=== PATIENT | male | born 1965 | race Caucasian/White ===

== ENCOUNTER 2019-11-18 10:38 | Outpatient (CLI) | payer OTHER, SELFPAY ==
--- NOTE | ~2019-11-18 | US_ITS ---
EXAMINATION: US joint non vasc ltd RT DATE: 11/18/2019 11:15 INDICATION: Right knee pain and palpable lump TECHNIQUE: Multiple grayscale and Doppler ultrasound images of the region of concern at the lateral r ight knee/proximal calf were obtained. COMPARISON: None FINDINGS: At the region of concern is a 3.0 x 3.5 x 1.8 cm predominantly solid hypoechoic mass with lobular mar gins and a few small internal cystic regions. There is internal vascularity with arterial waveforms o n color Doppler. There are few internal echogenic foci, potentially calcification. IMPRESSION: 1. 3.0 x 3.5 x 1.8 cm lobular solid vascular mass at the lateral right knee/proximal calf. Differenti al would include solid neoplasm either benign or malignant, metaplasia such as pigmented villonodular synovitis or gouty tophus with associated reactive synovitis. Consider pre and postcontrast MRI and/ or ultrasound-guided biopsy. Reviewed, dictated and finalized at location A. IMPRESSION: 1. 3.0 x 3.5 x 1.8 cm lobular solid vascular mass at the lateral right knee/pro ximal calf. Differential would include solid neoplasm either benign or malignan t, metaplasia such as pigmented villonodular synovitis or gouty tophus with ass ociated reactive synovitis. Consider pre and postcontrast MRI and/or ultrasound -guided biopsy.
== END 2019-11-18 10:39 | disposition home or self-care (01) ==
PROVIDERS: PCP Emergency Medicine; Referring Provider Orthopaedic Surgery; Visit Provider Nurse Practitioner Family
DX: M25.561 Pain in right knee (principal); M67.40 Ganglion, unspecified site; R22.41 Localized swelling, mass and lump, right lower limb
CPT/HCPCS: 76882

== ENCOUNTER → 2019-11-30 13:54 | Outpatient (CLI) | payer OTHER, SELFPAY ==
--- NOTE | ~2019-11-30 | MR_ITS ---
EXAMINATION: MR knee RT wo/w con DATE: 11/30/2019 15:22 INDICATION: Mass at the proximal right fibula. TECHNIQUE: Magnetic resonance imaging (MRI) of the right knee was performed without and with 17 mL Mu ltihance intravenous contrast. Sequences included axial T1-weighted FSE, fluid sensitive FSE STIR an d T1-weighted FS FSE; sagittal T1-weighted FSE, fluid sensitive FSE STIR and PD-weighted FS FSE; kaleb nal T1-weighted FSE and fluid sensitive FSE STIR and with contrast axial, sagittal and coronal T1-grady ghted FS FSE. COMPARISON: None. FINDINGS: Postoperative changes of prior anterior cruciate ligament reconstruction with metallic magnetic field artifact surrounding interference screws at both the femoral and tibial tunnels. The reconstruction appears to have failed with no evident intact appearing graft tissue. More prominent metallic field a rtifact seen surrounding a washer and screw extending across the proximal metaphyseal region of the t ibia from the medial side of the anterior tibial tuberosity towards the region of the proximal tibiof ibular articulation. There is a central defect at the anterior tubular tuberosity and distal insertio n of the patellar tendon which suggests the possibility of prior patellar tendon autograft harvest. C orrelate with surgical history. The medial and fibular collateral ligaments are normal. There is a multilobulated lesion along the anterior margin of the proximal fibula which extends 4.4 s imilar craniocaudally and measures up to 2.3 x 1.8 cm in maximal transaxial dimensions. This appears to correspond to the lesion of concern on the prior ultrasound. The lesion is centrally T2 hyperinten se and nonenhancing with thin peripheral rim enhancement as well as enhancement along a couple thin i ncomplete internal septations. The lesion appears to communicate with the proximal tibiofibular joint . There are small relatively well-defined erosions with thin corticated margins extending primarily i nto the tibial side of the bone although a small erosion is seen at the cephalad-most tip of the fibu la. Centrally the erosions demonstrate similar T2 hyperintensity and peripheral predominant enhanceme nt as the larger lobular lesion although assessment is more limited due to the field artifact from th e nearby tip of the previously noted tibial screw. There is minimal marrow edema but without evident loss of T1 fat signal immediately adjacent to the erosions. No evident associated more masslike solid enhancing tissue. There is no evident signal loss due to susceptibility artifact in the region of th ben lesions on the gradient-echo [employer] images to suggest the pigmented villonodular synovitis. There are complex tears of both the medial and lateral menisci with appears be anteriorly displaced b ucket-handle tear of the medial meniscus. Tricompartmental osteoarthritis, severe with extensive full /near full-thickness cartilage loss and early remodeling of the articular surfaces in the medial comp artment, mild to moderate severity with scattered high-grade chondromalacia in the lateral compartmen t and mild in the distal femoral compartment with a deep oblique chondral fissure extending across th e cephalad aspect of the medial trochlea but otherwise relatively preserved cartilage. There are mult iple large loose bodies including at the suprapatellar pouch, between Hoffa's fat pad and the interco ndylar notch and in the recesses posterior to the medial and lateral femoral condyles. Minimal joint effusion. IMPRESSION: 1. A previous noted noted lobular mass of concern located anterior to the proximal fibula appears to correspond to a complex cystic structure which erodes into both the tibia and to lesser degree fibula on both sides of the proximal tibiofibular joint. No definitive solid enhancing soft tissue componen t appreciated. Consultation findings on both ultrasound and MRI would be most suspici
[2019-11-30 14:27] LABS: Estimated Glomerular Filt Rate > 60
== END ==
PROVIDERS: PCP Emergency Medicine; Visit Provider Nurse Practitioner Family
DX: R22.41 Localized swelling, mass and lump, right lower limb (principal); S83.231A Complex tear of medial meniscus, current injury, right knee, initial encounter; S83.271A Complex tear of lateral meniscus, current injury, right knee, initial encounter; M17.11 Unilateral primary osteoarthritis, right knee; Z98.890 Other specified postprocedural states
CPT/HCPCS: 73723; A9577

== ENCOUNTER 2019-12-09 09:04 | Outpatient (CLI) | payer OTHER, SELFPAY ==
--- NOTE | ~2019-12-09 | US_ITS ---
EXAMINATION: US bx st muscle DATE: 12/09/2019 09:49 INDICATION: Mass at the lateral right knee TECHNIQUE: The procedure including the risks and benefits was discussed with the patient. Risks discu ssed included bleeding, infection, nerve injury and allergic reaction. The patient understood the ris ks and agreed to proceed. The skin overlying the mass at the lateral left knee was prepped and drape d in usual sterile fashion. Anesthetic was administered with 1% lidocaine subcutaneously. An 18 gau ge core biopsy needle was advanced under continuous ultrasound observation to the lesion of interest. 5 core biopsy specimens were obtained. The needle was removed and the entry site was cleaned and d ressed. Post procedure ultrasound demonstrated no hemorrhage. FINDINGS: Ultrasound images demonstrate a 3.7 x 3.5 x 1.8 cm heterogeneous hypoechoic mass in the reg ion of concern which demonstrates some internal vascularity on color Doppler and scattered punctate e chogenic foci. IMPRESSION: 1. Successful Ultrasound-guided biopsy of a 3.7 x 3.5 x 1.8 cm mass at the lateral aspect of the righ t knee. Reviewed, dictated and finalized at location A. IMPRESSION: 1. Successful Ultrasound-guided biopsy of a 3.7 x 3.5 x 1.8 cm mass at the late ral aspect of the right knee.
== END 2019-12-09 09:05 | disposition home or self-care (01) ==
LOC: ANHIMG 09:06
PROVIDERS: PCP Emergency Medicine; Visit Provider Nurse Practitioner Family
DX: R22.41 Localized swelling, mass and lump, right lower limb (principal)
CPT/HCPCS: 20206; 88304; 88307; 88333

== ENCOUNTER 2020-04-24 10:31 | Outpatient (RCR) | payer OTHER, SELFPAY ==
--- NOTE | 2020-04-24 11:35 | PTOPEVAL ---
PHYSICAL THERAPY PRE-OPERATIVE TRAINING AND EVALUATION for TKA Thank you for referring Arnold Pena to [facility].? We have not scheduled further visits at this time, but we will be happy to work with Arnold after surgery. Please review, sign, date and return this plan of care LUCIA. I agree with and certify that the following plan of care is medically necessary. Referring Physician Date Attending Provider: Dada Tubbs MD Evaluation Diagnosis right TKA 05/03/20 Subjective Information Arnold is here for pre-op Query Text:As Reported By Patient/ education for right TKA. He Family experiences quite a bit of pain through the LE when he bears weight and he cannot full extend the knee without pain. He is ready for surgery. We discussed pre-operative preparation and exercises and what to expect for the pre- operative appointment with nursing staff. Discussed what to expect for recovery room and to expect therapy in the recovery room. We discussed and educated on how to use and size walker, how to use the walker to negotiate stairs, and exercises and frequency for post-op as well as expectations for activity level. Prior Level of Function Activity Level (Last 3 Months) Activity of Daily Living Ability Independent Indoor/Home Mobility Independent Community Mobility Independent Stairs Ability Independent Functional Cognition (Planning, Shopping Independent , Taking Medications) Cooking Yes Cleaning Yes Laundry Yes Shopping Yes Driving Yes Home Setting Home Type House,Single Level Environmental Barriers Railing, None,Stairs, Threshold Living Situation With Spouse Mobility Assistive Devices (Used Last 3 None Months) Pain Assessment Timing of Pain Assessment Timing of Pain Assessment Assessment Pain Scale Pain Scale Used Numeric (1 - 10) Self Report Pain Assessment Right Knee(s) Reported Pain Level 5 Pain Description Sharp Pain Frequency Chronic,Continuous Greatest Pain Intensity 8 Pain Score Pain
== END 2020-07-10 10:29 | disposition home or self-care (01) ==
LOC: ANHPT 10:31
PROVIDERS: Family Provider Emergency Medicine; PCP Emergency Medicine; Visit Provider Orthopaedic Surgery
DX: M17.11 Unilateral primary osteoarthritis, right knee (principal); T84.84XD Pain due to internal orthopedic prosthetic devices, implants and grafts, subsequent encounter
CPT/HCPCS: 97110; 97161

== ENCOUNTER 2020-04-24 11:42 | Outpatient (CLI) | payer OTHER, SELFPAY ==
--- NOTE | 2020-04-24 12:35 | ECG_ITS ---
Measurements Intervals [place] Rate: 72 P: 53 WI: 166 QRS: 27 QRSD: 94 T: -10 QT: 380 QTc: 418 Interpretive Statements SINUS RHYTHM NONSPECIFIC T-WAVE ABNORMALITY- INFERIOR LEADS BASELINE ARTIFACT- I, II, III, AVR, AVL, AVF BORDERLINE ECG Electronically Signed On 04-24-2020 12:51:06 NURSE QUALITY by Paolo Ang D.O.
[2020-04-24 13:00] LABS: Basophils Absolute Auto 0.1 K/mm3 (0.0-0.1); Basophils Percent Auto 0.7 % (0.2-1.2); Eosinophils Absolute Auto 0.1 K/mm3 (0-0.3); Eosinophils Percent Auto 1.1 % (0-4.4); Hematocrit 44.6 % (42.0-52.0); Hemoglobin 15.4 g/dL (14.0-18.0); Immature Granulocyte Absolute 0.04 K/mm3 (0.00-0.031); Immature Granulocyte Percent A 0.5 % (0-0.5); Lymphocytes Absolute Auto 1.84 K/mm3 (0.9-3.2); Lymphocytes Percent Auto 20.7 % (18.3-44.2); Mean Corpuscular HGB Conc 34.5 g/dl (32-36); Mean Corpuscular Hemoglobin 28.2 pg (26-34); Mean Corpuscular Volume 81.7 fl (80-100); Mean Platelet Volume 10.3 fl (7.4-10.4); Monocytes Absolute Auto 0.7 K/mm3 (0.1-0.6); Monocytes Percent Auto 7.4 % (2.6-8.5); Neutrophils Absolute Auto 6.2 K/mm3 (1.3-6.7); Neutrophils Percent Auto 69.6 % (45.5-73.1); Platelet Count Result 182 k/mm3 (150-375); Red Blood Count 5.46 M/mm3 (4.6-6.20); Red Cell Distribution Width 12.5 % (11.5-14.5); White Blood Count 8.9 K/mm3 (4.5-10.0)
[2020-04-24 13:02] LABS: Add Urine Microscopic? NO; Appearance Urine Clear (Clear); Bilirubin Urine Negative (Negative); Blood Urine Negative (Negative); Color Urine Colorless (Yellow); Glucose Urine UA Negative (Negative); Ketones Urine Negative (Negative); Leukocyte Esterase Ur Negative LEU/UL (Negative); Nitrate Urine Negative (Negative); Protein Urine Negative (Negative); Specific Grav Ur 1.005 (1.001-1.035); Urobilinogen Urine Negative mg/dL (<2.0)
[2020-04-24 13:18] LABS: Urine Cotinine NEGATIVE
[2020-04-24 13:20] LABS: Albumin Level 4.2 g/dL (3.5-5.1); Anion Gap 5 mmol/L (8-16); Blood Urea Nitrogen 13 mg/dL (9-20); Carbon Dioxide 27 mmol/L (22-30); Chloride 108 mmol/L (98-107); Estimated Glomerular Filt Rate > 60; Glucose 123 mg/dL (75-110); Potassium 3.8 mmol/L (3.4-5.0); Sodium 140 mmol/L (137-145)
== END 2020-04-24 11:43 | disposition home or self-care (01) ==
LOC: ANHSURGERY 11:45
PROVIDERS: PCP Emergency Medicine; Visit Provider Orthopaedic Surgery
DX: M17.10 Unilateral primary osteoarthritis, unspecified knee (principal); Z51.81 Encounter for therapeutic drug level monitoring; Z79.899 Other long term (current) drug therapy
CPT/HCPCS: 80048; 80307; 81003; 82040; 85025; 86850; 86900; 86901; 87081; 93005

== ENCOUNTER 2020-05-03 06:00 | Inpatient (IN) | payer OTHER, SELFPAY ==
[2020-04-24 12:18] VITALS: BP 162/88; PULSE 78; RESP 20; TEMP 36.9; O2SAT 96; BMI 30.3
--- NOTE | 2020-04-25 10:10 | PM.IMHP ---
H&P: HPI History of Present Illness Chief Complaint: Right knee pain Narrative: Knee Pain Pt. presents with Rt knee pain, pt.states that the pain has been chronic but as of 11/08/19 a knot has appeared on the knee. Pt. states he is having pain and some swelling. Pt. has a hx of an ACL repair back in 1990. He is currently scheduled for OP Right TKA on 04/12/20. Involved knee: right Onset: sudden Location of pain: lateral and other (entire knee region ) Pain scale (0-10): 6 Character: throbbing, dull ache and other (tender to the touch ) Timing of pain: constant Exacerbated by: direct pressure, stairs and prolonged activity Relieved by: elevation, ice, rest and NSAIDs Associated symptoms: Reports swelling and grating History of occupational/recreational activity with repetitive motion: No History of prior knee injury: No Review of Systems Review of Systems: All systems reviewed & are unremarkable except as noted in HPI and below Constitutional: Constitutional: Denies headache(s) and Denies weakness Eyes: Eyes: Denies blurry vision, Denies change in vision and Denies loss of vision ENT: Denies dizziness, Denies dry mouth, Denies headache(s) and Denies nasal congestion Cardiovascular: Cardiovascular: Denies chest pain, Denies syncope, Denies leg edema and Denies dyspnea on exertion Respiratory: Respiratory: Denies cough and Denies dyspnea on exertion Gastrointestinal: Gastrointestinal: Denies abdominal pain, Denies constipation and Denies diarrhea Genitourinary: Genitourinary: Denies urinary frequency Musculoskeletal: Musculoskeletal: Reports as per HPI and Denies numbness Integumentary/Breasts: Skin/Breast: Reports system reviewed and no additional complaints, except as docu Neurologic: Denies dizziness, Denies syncope, Denies headache(s), Denies loss of vision, Denies numbness and Denies weakness Psychiatric: Psychiatric: Reports no additional psychiatric complaints Endocrine: Endocrine: Reports no additional endocrine complaints Hematologic/Lymphatic: Hematologic/Lymphatic: Reports no additional hematologic/lymphatic complaints [facility] Past Medical History Medical History Degenerative joint disease of knee Ganglion cyst HLD (hyperlipidemia) Hyperglycemia Mass of right knee Right knee pain Surgical History Surgical History H/O reconstruction of anterior cruciate ligament tear Family History Family History Father Family history of malignant neoplasm, Onset Age: 54 Mother Family history of kidney disease Social History Social History Smoking status: Never smoker Second hand tobacco smoke exposure: No Additional smoking assessment comments: DENIES ALL/ANY USE OF TOBACCO Alcohol intake: current Drinks per week: 3 Substance use: never Substance use type: does not use Spiritual care concerns: No Meds Home Medications and Allergies Home Medications Medication Instructions Recorded Confirmed Type loratadine 10 mg tablet 10 mg PO DAILY 06/10/19 04/24/20 History sertraline 50 mg tablet 50 mg PO QAM 06/10/19 04/24/20 History losartan 100 1 tablet PO DAILY #30 tablet 09/21/19 04/24/20 Rx mg-hydrochlorothiazide 25 mg tablet chlorhexidine gluconate 4 % 1 applic TOPICAL ONCE #237 ml 01/10/20 04/24/20 Rx topical liquid ascorbate sodium (vitamin C) 500 mg IM DAILY 04/24/20 04/24/20 History bupropion HCl 150 mg PO QAM 04/24/20 04/24/20 History cholecalciferol (vitamin D3) 25 mcg PO DAILY 04/24/20 04/24/20 History wybjdpqb-scbbk-poz3-C-cheryl-bor 1 tablet PO QAM 04/24/20 04/24/20 History [Vtcgsghqvgm-Mxbfd-TOA Complex] Allergies Allergy/AdvReac Type Severity Reaction Status Date / Time amoxicillin Allergy Mild RASH Verified 04/24/20 12:08 Penicillins Allergy U
--- NOTE | 2020-05-02 12:14 | WPDANESPNB ---
Anes - Peripheral Nerve Block Date/Time: 05/02/20 12:14 I have discussed with the patient/family/POA the placement of a peripheral nerve block for post-operative pain management, including associated risks, benefits, complications, and side effects. Alternative methods of post-operative analgesia were detailed. Questions were solicited and answers provided to the satisfaction of the patient/family/POA. Time-Out: A pre-procedural Time-Out was completed immediately before starting the procedure and confirmed: Patient Identification, Site, Procedure, Patient Position and the Availability of Requisite Equipment. Clinical Indications: Acute post-operative pain management requested by the operative surgeon. Nerve Block Insertion Note Anes-nerve block: adductor canal right Patient position: supine Skin prep: chlorhexidine Needle: 22 gauge, stimulating, insulated echogenic needle. Needle length: 80 mm Technique: ultrasound Technique comment: in plane Injectate: bupivacaine 0.5% with epi 5 mcg/ml (30cc) Observations: tolerated well Complications: none Procedure start time:: 740 Procedure end time:: 745
--- NOTE | 2020-05-02 12:14 | WPDANESEPPF ---
Anes - Initial Pre Proc Eval Procedure: Operation Date: 05/03/20 07:30 Proposed Procedures p Right Total Knee Arthroplasty - Dada Tubbs MD s Removal Hardware Right Knee - Dada Tubbs MD Date/Time: 05/02/20 12:14 Surgeon: Dada Tubbs MD Pre Op Diagnosis: right knee DJD, retained hardware Patient Data Age: 54 Gender: M Height: 1.73 m Weight: 90.5 kg Last Vital Signs Temp 36.9 C 04/24/20 12:18 Pulse 78 04/24/20 12:18 Resp 20 04/24/20 12:18 BP 162/88 H 04/24/20 12:18 Pulse Ox 96 04/24/20 12:18 Allergies Allergy/AdvReac Type Severity Reaction Status Date / Time amoxicillin Allergy Mild RASH Verified 05/03/20 06:09 Penicillins Allergy Mild Rash Verified 05/03/20 06:09 Home Medications Medication Instructions Recorded Confirmed Type loratadine 10 mg tablet 10 mg PO DAILY 06/10/19 05/03/20 History sertraline 50 mg tablet 50 mg PO QAM 06/10/19 05/03/20 History losartan 100 1 tablet PO DAILY #30 tablet 09/21/19 05/03/20 Rx mg-hydrochlorothiazide 25 mg tablet chlorhexidine gluconate 4 % 1 applic TOPICAL ONCE #237 ml 01/10/20 04/24/20 Rx topical liquid ascorbate sodium (vitamin C) 500 mg PO DAILY 04/24/20 05/03/20 History bupropion HCl 150 mg PO QAM 04/24/20 05/03/20 History cholecalciferol (vitamin D3) 25 mcg PO DAILY 04/24/20 05/03/20 History tfwibebu-mfgee-ofs7-C-cheryl-bor 1 tablet PO QAM 04/24/20 05/03/20 History [Abmdkgdvhuf-Qzfds-SNG Complex] Patient hx anesthesia problems: none Family hx anesthesia problems: none PMFSH Past Medical History Medical History (Updated 05/02/20 @ 12:14 by Tino Reinoso MD) Anxiety Degenerative joint disease of knee Depression Ganglion cyst HLD (hyperlipidemia) Hyperglycemia Mass of right knee Obesity Right knee pain Surgical History Surgical History H/O reconstruction of anterior cruciate ligament tear Family History Family History Father Family history of malignant neoplasm, Onset Age: 54 Mother Family history of kidney disease Social History Social History Smoking status: Never smoker Second hand tobacco smoke exposure: No Additional smoking assessment comments: DENIES ALL/ANY USE OF TOBACCO Alcohol intake: current Drinks per week: 3 Substance use: never Substance use type: does not use Living arrangements: with family Spiritual care concerns: No Anes - Eval Final PreProcedure Day of Procedure 05/02/20 12:14 Patient weight: obese Heart: regular rate and rhythm Lungs: clear to auscultation and normal air movement Airway: Mallampati scale class II Neurological: alert and oriented Last oral intake: >/= 8 hours ASA classification: III Emergent: no Anesthetic plan: proceed Anesthesia type and monitoring: general LMA Informed Consent: The patient's anesthetic plan and its attendant risks and benefits were discussed with the patient/family/POA. Questions were solicited and answers provided to the satisfaction of the patient/family/POA.
[2020-05-03] VITALS (14 sets, daily range): BP systolic 110–135; BP diastolic 60–86; PULSE 74–98; RESP 13–18; TEMP 36.4–37; O2SAT 93–100
--- NOTE | ~2020-05-03 | XR_ITS ---
EXAMINATION: XR knee RT 2V DATE: 05/03/2020 11:57 INDICATION: Total right knee arthroplasty. Postop. TECHNIQUE: 2 views of right knee were obtained. COMPARISON: Right knee radiographs 03/30/20 FINDINGS: There is a total right knee arthroplasty without patellar resurfacing in near-anatomic alig nment. The patella demonstrates tiny osteophytes. There is an interference screw in distal femur. The re is gas in the soft tissues and knee joint, consistent with recent surgery. Anterior skin kelsea a re noted. IMPRESSION: 1. Total right knee arthroplasty in near-anatomic alignment. Reviewed, dictated and finalized at location A. [employer]
[2020-05-03] MEDS: ACETAMINOPHEN 500 MG TABLET 1000 MG PO (06:14)
[2020-05-03] MEDS: LACTATED RINGERS 1,000 ML 30 ML IV CONT ×2 (06:32→11:07)
[2020-05-03 06:43] LABS: Hemoglobin A1C 5.8 % (<5.7)
[2020-05-03 06:49] LABS: INR 0.9; Partial Thromboplastin Time 30.1 SECONDS (22.3-36.8); Prothrombin Time 12.6 Seconds (11.1-14.7)
[2020-05-03] MEDS: TRANEXAMIC ACID 1,000MG/ISO100 1,000 MG/100 ML BAG 200 MG IVPB (07:07)
--- NOTE | 2020-05-03 07:35 | WPDHPUPDATE1 ---
History and Physical Update Update Date/Time: 05/03/20 07:35 History and Physical has been reviewed, including an updated exam of the patient. There are NO changes in the patient's condition. Risks, benefits, and alternatives have been discussed and questions answered. Patient agrees to proceed with procedure.
[2020-05-03] MEDS: CLINDAMYCIN 900 MG/D5W 50 ML 900 MG/50 ML PIGGYBACK 50 MG IVPB (07:50)
[2020-05-03] MEDS: TRANEXAMIC ACID 1,000 MG/10 ML AMPUL 1000 MG IV PUSH (09:29)
[2020-05-03] MEDS: ceFAZolin SODIUM 1 GM VIAL 2 GM IV PUSH (10:05)
--- NOTE | 2020-05-03 11:09 | P.OP_ITS ---
Procedure Note - Detailed Date of procedure: 05/03/20 Pre-op diagnosis: right knee DJD, retained hardware Post-op diagnosis: same Procedure performed: R TKA WITH HARDWARE REMOVAL Description of procedure: THE RIGHT KNEE WAS PREPPED AND DRAPED IN THE STERILE FASHION. A MIDLINE SKIN INCISION WAS MADE AND CONTINUED TO MEET THE OLD INCISION. A MEDIAL PARAPATELLAR ARTHROTOMY WAS MADE. THE PATELLA WAS EVERTED. THERE WAS SEVERE TRICOMPARTMENT DJD. THERE WAS MINIMAL PATELLA DJD. DISSECTION CONTINUED MEDIALLY UNTIL THE OLD ACL RECONSTRUCTION SCREWS WERE VISUALIZED. BOTH SCREWS AND WASHER WERE REMOVED ALONG WITH OLD ETHIBOND SUTURE WAS REMOVED IN ITS ENTIRETY. THE HOLES WERE CURETTED AND LAVAGED TO GOOD BONE. NEXT, AN INTRAMEDULLARY CELESTINA WAS PLACED IN THE FEMUR. A DISTAL FEMORAL CUT WAS MADE IN 5 DEGREES OF VALGUS REMOVING APPROXIMATELY 9 MM OF BONE FROM THE DISTAL FEMUR. THE FEMUR WAS SIZED TO 67.5. A 67.5 FEMORAL CUTTING BLOCK WAS PLACED IN 3 DEGREES OF EXTERNAL ROTATION AND IN ALIGNMENT WITH ALEC'S LINE AND THE TRANSEPICO NDYLAR AXIS. ANTERIOR POSTERIOR AND CHAMFER CUTS WERE MADE. THE CUTS WERE EXCELLENT. NEXT AN INTRAMEDULLARY CUTTING GUIDE WAS PLACED IN THE TIBIA. A TRANS TIBIAL CUT WAS MADE ALONG THE LONG AXIS OF THE TIBIA. APPROXIMATELY 10 MM OF BONE WAS REMOVED FROM THE HIGH SIDE OF THE TIBIA. THE TIBIA WAS THEN PLANED TO A SMOOTH SURFACE. POSTERIOR FEMORAL OSTEOPHYTES WERE REMOVED FROM THE FEMORAL CONDYLES. THE FEMORAL ACL RECONSTRUCTION SCREW WAS NOT VISUALIZED WITH DISSECTION AND WAS EMBEDDED INTO BONE SO REMOVAL WAS NOT ATTEMPTED. AN 83 TIBIAL TRIAL WAS PLACED IN ALIGNMENT WITH THE 1/3 MEDIAL ASPECT OF THE TIBIAL TUBERCLE. THEN A 67.5 FEMORAL TRIAL COMPONENT WAS PLACED. BOTH HAD EXCELLENT FITS. EVENTUALLY A 10 MM POLYETHYLENE TRIAL COMPONENT WAS PLACED. THE KNEE WAS TAKEN THROUGH A RANGE OF MOTION. THE KNEE CAME OUT TO FULL EXTENSION. THERE WAS NO ABNORMAL TILT TO THE PATELLA. THERE WAS GOOD A/P AND VARUS/VALGUS STABILITY. THERE WAS NO EXCESSIVE ROLL BACK WITH FLEXION. THE TRIAL COMPONENTS WERE REMOVED. THEN A 67.5 FEMORAL COMPONENT AND 83 TIBIAL COMPONENT WITH A 10 CR POLYETHYLENE COMPONENT WERE PRESS FIT INTO PLACE. THE IMPLANTS WERE FLUSH WITH THE CUT BONE SURFACES. THE KNEE WAS TAKEN THROUGH A ROM AGAIN AND FOUND TO BE STABLE WITH NO PATELLA TILT NO EXCESSIVE ROLL BACK WITH FLEXION AND GOOD STABILITY WITH COMPLETE AND FULL EXTENSION. THE KNEE WAS IRRIGATED WITH STERILE BETADINE AND WATER FOR ABOUT 3 MINUTES. THE BLEEDERS WERE CAUTERIZED. THE ARTHROTOMY WAS REPAIRED WITH NUMBER 1 VICRYL. THE SUB CUTANEOUS LAYER WITH 2-0 VICRYL AND THE SKIN WITH JENNIFER. THE WOUND WAS WASHED AND A STERILE DRESSING WAS APPLIED. PATIENT WAS EXTUBATED. Anesthesia: GETA Surgeon: Dada Tubbs MD Estimated blood loss (mL): 100 Complications: No immediate complications Condition: stable Disposition: PACU
--- NOTE | 2020-06-12 16:11 | PM.PNORT ---
Progress Note: A&P Additional Plan ESTHER IS S/P R TKA DOING WELL. HIS OUTCOME WAS EXCELLENT, HE WILL BE DISCHARGED TO HOME WITH A REGULAR DIET AND RETURN TO SEE ME IN 2 WEEKS, HIS FINAL DIAGNOSIS IS RIGHT KNEE ARTHRITIS S/P RIGHT KNEE REPLACEMENT. Subjective Subjective Date/Time Seen: 06/12/20 16TIMM IS S/P R TKA AND INSTEAD OF STAYING OVERNIGHT HE WOULD LIKE TO GO HOME. HE FEEL COMFORTABLE AND HIS PAIN IS WELL CONTROLLED. HE IS STABLE WITH AMBULATION AND FROM A CLINICAL STANDPOINT. Review of Systems Review of Systems: All systems reviewed & are unremarkable except as noted in HPI and below Exam Extrem: Other: THE RIGHT KNEE HAS A FRESH WOUND AND DRESSING, THE CALF IS SOFT AND NON TENDER, HE IS NV INTACT Objective Data Meds/Results Radiology Results: ITS Impressions Knee X-Ray 05/03/20 11:59 IMPRESSION: 1. Total right knee arthroplasty in near-anatomic alignment.
== END 2020-05-03 15:48 | disposition home or self-care (01) | DRG 470 ==
LOC: ANHSURGERY 11:33 → ANH2MED 14:58 → ANH3MED 05-10 09:26
PROVIDERS: Admitting Provider Orthopaedic Surgery; PCP Emergency Medicine; Visit Provider Orthopaedic Surgery
PROC: 0SRC0JA Replacement of Right Knee Joint with Synthetic Substitute, Uncemented, Open Approach (ICD-10-PCS; CPT 27447; principal; 2020-05-03 07:30)
PROC: 0SRC0JA Replacement of Right Knee Joint with Synthetic Substitute, Uncemented, Open Approach (ICD-10-PCS; 2020-05-03 07:30)
DX: M17.11 Unilateral primary osteoarthritis, right knee (principal); E78.5 Hyperlipidemia, unspecified
CPT/HCPCS: 36415; 73560; 83036; 85610; 85730; 97110; 97161; 99199; A9270; C1713; C1776; J0171; J0690; J1100; J1170; J2250; J2270; J2405; J2704; J2795; J3010; J7120

== ENCOUNTER → 2020-07-22 06:48 | Outpatient (CLI) | payer OTHER, SELFPAY ==
[2020-07-22 19:16] LABS: SARS-CoV-2 RNA PCR Negative
== END ==
PROVIDERS: PCP Emergency Medicine; Visit Provider Orthopaedic Surgery
DX: Z01.812 Encounter for preprocedural laboratory examination (principal); Z20.822 Contact with and (suspected) exposure to COVID-19
CPT/HCPCS: C9803; U0003; U0005

== ENCOUNTER 2020-07-26 01:04 | Day surgery (SDC) | payer OTHER, SELFPAY ==
[2020-07-18 11:06] VITALS: BMI 26.2
--- NOTE | 2020-07-26 07:21 | WPDHPUPDATE1 ---
History and Physical Update Update Date/Time: 07/26/20 07:21 History and Physical has been reviewed, including an updated exam of the patient. There are NO changes in the patient's condition. Risks, benefits, and alternatives have been discussed and questions answered. Patient agrees to proceed with procedure.
[2020-07-26 12:03] VITALS: BP 137/84; PULSE 77; RESP 16; TEMP 36.4; O2SAT 99
[2020-07-26] MEDS: ACETAMINOPHEN 500 MG TABLET 1000 MG PO (12:24)
[2020-07-26] MEDS: CELECOXIB 200 MG CAPSULE PO (12:25)
--- NOTE | 2020-07-26 12:35 | WPDANESEPPF ---
Anes - Initial Pre Proc Eval Procedure: Operation Date: 07/26/20 14:00 Proposed Procedures p Right Knee Manipulation Under Anesthesia With Right Knee Injection - Dada Tubbs MD Date/Time: 07/26/20 12:35 Surgeon: Dada Tubbs MD Pre Op Diagnosis: right knee adhesive capsulitis Patient Data Age: 54 Gender: M Height: 1.75 m Weight: 81.9 kg Last Vital Signs Temp 36.4 C 07/26/20 12:03 Pulse 77 07/26/20 12:03 Resp 16 07/26/20 12:03 BP 137/84 07/26/20 12:03 Pulse Ox 99 07/26/20 12:03 Allergies Allergy/AdvReac Type Severity Reaction Status Date / Time amoxicillin Allergy Mild RASH Verified 07/18/20 11:03 Penicillins Allergy Mild Rash Verified 07/18/20 11:03 Home Medications Medication Instructions Recorded Confirmed Type loratadine 10 mg tablet 10 mg PO DAILY 06/10/19 07/26/20 History sertraline 50 mg tablet 50 mg PO DAILY 06/10/19 07/26/20 History bupropion HCl 150 mg PO DAILY 04/24/20 07/26/20 History oxycodone-acetaminophen 7.5 mg-325 1 tablet PO Q4H PRN #60 tablet 05/10/20 07/26/20 Rx mg tablet losartan-hydrochlorothiazide 1 tablet PO DAILY 07/18/20 07/26/20 History vitamin S15-uccon acid 1 tablet PO DAILY 07/18/20 07/26/20 History Tylenol Arthritis 500 mg PO DAILY 07/26/20 07/26/20 History Patient hx anesthesia problems: none Family hx anesthesia problems: none PMFSH Past Medical History Medical History (Updated 07/26/20 @ 12:33 by Alex Sheikh DO) Anxiety Degenerative joint disease of knee Depression Ganglion cyst HLD (hyperlipidemia) Hyperglycemia Hypertension Mass of right knee Obesity Right knee pain Surgical History Surgical History (Updated 07/11/20 @ 08:24 by Berkley Billings RN) H/O reconstruction of anterior cruciate ligament tear Family History Family History Father Family history of malignant neoplasm, Onset Age: 54 Mother Family history of kidney disease Social History Social History Smoking status: Never smoker Second hand tobacco smoke exposure: No Additional smoking assessment comments: DENIES ALL/ANY USE OF TOBACCO Alcohol intake: current Drinks per week: 3 Substance use: never Substance use type: does not use Living arrangements: with family Spiritual care concerns: No Anes - Eval Final PreProcedure Day of Procedure 07/26/20 12:35 Patient weight: overweight Heart: regular rate and rhythm Lungs: clear to auscultation and normal air movement Airway: Mallampati scale class II Neurological: alert and oriented Last oral intake: >/= 8 hours ASA classification: III Emergent: no Anesthetic plan: proceed Anesthesia type and monitoring: general and standard monitoring Informed Consent: The patient's anesthetic plan and its attendant risks and benefits were discussed with the patient/family/POA. Questions were solicited and answers provided to the satisfaction of the patient/family/POA.
[2020-07-26] MEDS: LACTATED RINGERS 1,000 ML 30 ML IV CONT (12:51)
[2020-07-26] MEDS: methylPREDNISolone ACETATE 80 MG/ML VIAL IM (13:52)
[2020-07-26 14:07] VITALS: BP 129/84; PULSE 82; RESP 19; TEMP 36.8; O2SAT 99
--- NOTE | 2020-07-26 14:14 | PM.PROC ---
Procedure Note - Detailed Date of procedure: 07/26/20 Pre-op diagnosis: right knee adhesive capsulitis Post-op diagnosis: same Procedure performed: DELON RIGHT KNEE Description of procedure: THE PATIENT WAS TAKEN TO THE OPERATING ROOM IN STABLE CONDITION. HE WAS PLACED UNDER GENERAL ANESTHESIA AND MAINTAINED WITH A MAC TECHNIQUE. THE RIGHT KNEE MOTION WAS MEASURED AT 15 TO 85 DEGREES. ONCE THE PATIENT WAS CHEMICALLY PARALYZED THE RIGHT KNEE WAS MANIPULATED UNTIL AUDIBLE ADHESIOLYSIS WAS OBSERVED. THE KNEE WAS MANIPULATED IN BOTH FLEXION AND EXTENSION. ROM ACHIEVED WAS MEASURED AT 0 TO 125 DEG. NEXT THE RIGHT KNEE WAS PREPPED AND DRAPED IN THE USUAL STERILE FASHION FIRST WITH CHLOR HEXEDINE THEN WITH BETADINE. USING STERILE TECHNIQUE, THE RIGHT KNEE JOINT WAS INJECTED WITH DEPO MEDROL 80 MG 2CC AND MARCAINE O.5 % WITHOUT EPINEPHRINE. THE PATIENT WAS MONITORED UNTIL HE WAS ALERT AND OUT OF GENERAL ANESTHESIA. HE WAS TRANSFERRED TO THE RECOVERY ROOM IN STABLE CONDITION Anesthesia: MAC Surgeon: Ddaa Tubbs MD Complications: No immediate complications Condition: stable Disposition: PACU
[2020-07-26 14:20] VITALS: BP 132/82; PULSE 75; RESP 20; O2SAT 97
[2020-07-26 14:26] VITALS: BP 150/94; PULSE 62; RESP 20
[2020-07-26 14:55] VITALS: BP 139/86; PULSE 60; RESP 20
[2020-07-26 15:15] VITALS: BP 139/86; PULSE 62; RESP 20
== END 2020-07-26 15:20 | disposition home or self-care (01) ==
PROVIDERS: PCP Emergency Medicine; Visit Provider Orthopaedic Surgery
PROC: (CPT 27570; principal; 2020-07-26 14:00)
DX: M76.891 Other specified enthesopathies of right lower limb, excluding foot (principal); M25.661 Stiffness of right knee, not elsewhere classified; Z96.651 Presence of right artificial knee joint; I10 Essential (primary) hypertension; E78.5 Hyperlipidemia, unspecified; F41.8 Other specified anxiety disorders
CPT/HCPCS: 27570; A9270; C9803; J0330; J1040; J2704; J7120; U0003; U0005